=== PATIENT | female | born 1995 | race Caucasian/White ===

== ENCOUNTER 2019-07-21 18:39 | Inpatient (IN) | payer MEDICAID, OTHER ==
[~2019-07-21] VITALS: Ht 162.6 cm; Wt 58.0 kg
[2019-07-21] MEDS ORDERED: PERTUSS(ACELL),DIPH,TET VAC/PF 0.5 ML VIAL IM ONE (20:00)
[2019-07-22 01:45] VITALS: BP 122/69
[2019-07-22] MEDS: ZOLPIDEM TARTRATE 10 MG TABLET PO PRN ×2 (01:57→20:38)
[2019-07-22] MEDS ORDERED: ACETAMINOPHEN 325 MG TABLET PO PRN (02:30)
[2019-07-22 08:40] VITALS: BP 135/70
[2019-07-22] MEDS ORDERED: LOPERAMIDE HCL 2 MG CAPSULE PO PRN (09:30)
[2019-07-22] MEDS ORDERED: PETROLATUM,WHITE 28 GM JELLY TP PRN (09:30)
[2019-07-22] MEDS ORDERED: ONDANSETRON HCL 4 MG TABLET PO PRN (09:30)
[2019-07-22] MEDS ORDERED: CloNIDine HCL 0.1 MG TABLET PO PRN (09:30)
[2019-07-22] MEDS ORDERED: DOCUSATE SODIUM 100 MG CAPSULE PO PRN (09:30)
[2019-07-22] MEDS ORDERED: GuaiFENesin/D-METHORPHAN [SUGAR-FREE] 200-20MG/10 ML SYRUP UDCUP PO PRN (09:30)
[2019-07-22] MEDS ORDERED: MAG HYDROX/AL HYDROX/SIMETH ES 30 ML SUSPENSION UDCUP PO PRN (09:30)
[2019-07-22] MEDS ORDERED: MAGNESIUM HYDROXIDE SUSPENSION 30 ML UDCUP PO PRN (09:30)
[2019-07-22] MEDS ORDERED: NICOTINE 14 MG/24 HOUR PATCH TD PRN (09:30)
[2019-07-22] MEDS ORDERED: ALBUTEROL SULFATE HFA 90 MCG/PUFF 8 GM INHALER IH PRN (09:30)
[2019-07-22] MEDS ORDERED: IBUPROFEN 400 MG TABLET PO PRN (09:30)
[2019-07-22] MEDS: BACITRACIN 28.4 GM OINTMENT TP SCH ×2 (09:54→16:24)
[2019-07-22 11:43] VITALS: BP 128/72
[2019-07-22] MEDS: ACETAMINOPHEN 325 MG TABLET PO PRN ×2 (11:43→22:43)
[2019-07-22] MEDS: ESCITALOPRAM OXALATE 10 MG TABLET PO SCH (13:09)
[2019-07-22 16:00] VITALS: BP 117/75
[2019-07-22] MEDS: LORazepam 2 MG TABLET PO PRN ×2 (16:22→23:58)
[2019-07-23 00:49] VITALS: BP 104/67
[2019-07-23] MEDS: HALOPERIDOL 5 MG TABLET PO PRN (01:49)
[2019-07-23] MEDS: ESCITALOPRAM OXALATE 10 MG TABLET PO SCH (09:06)
[2019-07-23] MEDS: BACITRACIN 28.4 GM OINTMENT TP SCH ×2 (09:06→16:14)
[2019-07-23 09:37] VITALS: BP 105/53
[2019-07-23 14:00] VITALS: BP 107/68
[2019-07-23] MEDS: LORazepam 2 MG TABLET PO PRN ×2 (14:00→18:36)
[2019-07-23 17:59] VITALS: BP 113/56
[2019-07-23] MEDS: ZOLPIDEM TARTRATE 10 MG TABLET PO PRN (21:06)
[2019-07-24 00:05] VITALS: BP 105/62
[2019-07-24] MEDS: HALOPERIDOL 5 MG TABLET PO PRN ×2 (00:08→21:22)
[2019-07-24] MEDS: LORazepam 2 MG TABLET PO PRN ×4 (00:08→23:10)
[2019-07-24] MEDS: ESCITALOPRAM OXALATE 10 MG TABLET PO SCH (08:35)
[2019-07-24] MEDS: BACITRACIN 28.4 GM OINTMENT TP SCH ×2 (08:35→16:34)
[2019-07-24 09:10] VITALS: BP 111/61
[2019-07-24 16:12] VITALS: BP 135/72
[2019-07-24] MEDS: ZOLPIDEM TARTRATE 10 MG TABLET PO PRN (21:22)
[2019-07-25 06:20] VITALS: BP 106/58
[2019-07-25 08:28] VITALS: BP 109/73
[2019-07-25] MEDS: ESCITALOPRAM OXALATE 10 MG TABLET PO SCH (09:32)
[2019-07-25] MEDS: BACITRACIN 28.4 GM OINTMENT TP SCH ×2 (09:32→17:41)
[2019-07-25] MEDS: LORazepam 2 MG TABLET PO PRN ×2 (12:09→22:39)
[2019-07-25 16:05] VITALS: BP 103/65
[2019-07-25] MEDS: ZOLPIDEM TARTRATE 10 MG TABLET PO PRN (21:16)
[2019-07-25] MEDS: HALOPERIDOL 5 MG TABLET PO PRN (21:16)
[2019-07-26 00:15] VITALS: BP 101/70
[2019-07-26 08:02] VITALS: BP 100/66
[2019-07-26] MEDS: BACITRACIN 28.4 GM OINTMENT TP SCH (08:25)
[2019-07-26] MEDS: ESCITALOPRAM OXALATE 10 MG TABLET PO SCH (08:25)
[2019-07-26] MEDS ORDERED: ESCI-8 PO (13:32)
== END 2019-07-26 16:30 | disposition home or self-care (01) | DRG 751 ==
LOC: EMS 18:40 → B2S 23:27
PROVIDERS: ADMIT Psychiatry & Neurology Child & Adolescent Psychiatry; ATTEND Psychiatry & Neurology Child & Adolescent Psychiatry
DX: F33.2 Major depressive disorder, recurrent severe without psychotic features (principal); R45.851 Suicidal ideations; G44.209 Tension-type headache, unspecified, not intractable; F41.9 Anxiety disorder, unspecified
CPT/HCPCS: 90715